=== PATIENT | male | born 1975 | race Caucasian/White ===

== ENCOUNTER 2019-05-05 12:19 | Emergency (ER) | payer MEDICARE, MEDICAID ==
[~2019-05-05] VITALS: Ht 180.3 cm; Wt 68.2 kg
[~2019-05-05 12:19] MED LIST: CLIN150C99 PO
[2019-05-05 12:31] VITALS: BP 108/67
--- NOTE | 2019-05-05 12:54 | NUR ---
Pt states he use to take Seroquel 800mg slow release for his schizophrenia. Taking this made him not have symptoms of schizophrenia.
[2019-05-05] MEDS ORDERED: QUET400T5 PO (12:59)
--- NOTE | 2019-05-05 13:08 | NUR ---
pt is sitting quietly in his room.
[2019-05-05] MEDS ORDERED: QUETIAPINE 200 MG TAB.SR.24H PO ONE (13:25)
[2019-05-05] MEDS ORDERED: quetiapine 100mg tablet PO SCH (13:53)
--- NOTE | 2019-05-05 14:03 | NUR ---
RN spoke with pt about Seroquel dose and informed pt that Seroquel XR is not available. Pt has not taken Seroquel in a few months. RN does not feel it is safe to give the ordered dose of seroquel at this time. Awaiting evaluation and recommendations from psychiatrist.
[2019-05-05] MEDS ORDERED: QUET400T PO (14:46)
--- NOTE | 2019-05-05 15:06 | NUR ---
All belongings returned to pt including wallet. Pt left in stable condition with RX. Pt to follow up with [facility].
== END 2019-05-05 15:19 ==
LOC: ER 12:19
DX: R44.0 Auditory hallucinations (principal); F32.9 Major depressive disorder, single episode, unspecified; K21.9 Gastro-esophageal reflux disease without esophagitis; Z79.2 Long term (current) use of antibiotics; Z88.0 Allergy status to penicillin; Z79.899 Other long term (current) drug therapy
CPT/HCPCS: 90654; 99285